=== PATIENT | female | born 1995 | race Caucasian/White ===

== ENCOUNTER 2023-05-18 20:27 | Emergency (ER) | payer OTHER ==
[~2023-05-18] VITALS: Ht 175.3 cm; Wt 95.0 kg
[2023-05-18 21:38] VITALS: BP 139/60; PULSE 92; RESP 18; TEMP 98; O2SAT 99
[2023-05-18] MEDS ORDERED: CEPHALEXIN 250MG CAPSULE PO ONE (23:00)
[2023-05-18] MEDS ORDERED: SULFAMETHOXAZOLE/TRIMETHOPRIM 800/160MG TABLET PO ONE (23:00)
== END 2023-05-19 00:11 | disposition home or self-care (01) ==
LOC: ER 20:27
DX: L03.032 Cellulitis of left toe (principal); J45.909 Unspecified asthma, uncomplicated
CPT/HCPCS: 81025; 99283